=== PATIENT | female | born 1995 | race Caucasian/White ===

== ENCOUNTER 2021-02-22 14:09 | Outpatient (REF) | payer OTHER, SELFPAY ==
[2021-02-22 18:23] LABS: HCT 43.3 % (36.0-46.0); HGB 13.8 g/dL (11.2-15.7); Iron 76 ug/dL (50-170); MCH 29.6 pg (27.0-33.0); MCHC 31.9 % (32.0-36.0); MCV 92.9 fL (80-95); MPV 10.3 fL (8.0-11.0); Platelet Count 272 10^3/uL (130-400); RBC 4.66 10^6/uL (3.93-5.22); RDW-SD 44.1 fL; Total Iron Binding Capacity 302 ug/dL (250-450); Transferrin Sat 25 % (15-50); WBC 10.36 10^3/uL (4.4-10.8)
[2021-02-22 18:37] LABS: Ferritin 80 ng/mL (8-252)
[2021-02-24 10:23] LABS: HIV-1/2 Ag & Ab Screen Negative (Negative)
== END 2021-02-22 14:10 | disposition home or self-care (01) ==
LOC: LBN 14:09
PROVIDERS: Visit Provider Nurse Practitioner Family
DX: D50.9 Iron deficiency anemia, unspecified (principal); B37.0 Candidal stomatitis
CPT/HCPCS: 85027; 87389; 82728; 83540; 83550

== ENCOUNTER 2021-07-16 18:26 | Outpatient (REF) | payer OTHER, SELFPAY | END 2021-07-16 18:27 | disposition home or self-care (01) | LOC: NCHCN 18:26 | PROVIDERS: Visit Provider Physician Assistant | DX: N76.0 Acute vaginitis (principal) | CPT/HCPCS: 87480; 87510; 87660 ==

== ENCOUNTER 2022-02-09 16:19 | Outpatient (REF) | payer BC, OTHER, SELFPAY ==
--- NOTE | 2022-02-09 10:45 | PAPFT_PTH ---
PATIENT: Deepthi Jackson [facility] U#:[id number] AGE/SX: 26/F ROOM: RE02/09/[address]: DENISE HERNANDEZ NP : 1995 BED: DIS: 02/09/2022 SPEC #: [id number] RECD: 02/09/22 16:25 STATUS: CYNTHIA RERita #: [id number] MARYELLEN: 02/09/22 10:[address]: DENISE HERNANDEZ DEPT: [facility] Cytology RECD BY: Laura Jeffers Tissues: 1 - CX/ENDOCX FOR PAP SMEARS Procedures: PAP THIN PREP/UVM Screening Comments: [id number] (CHLAMYDIA/GC)
[2022-02-10 17:11] LABS: Chlamydia Result Negative (Negative); GC Result Negative (Negative)
== END 2022-02-09 16:20 | disposition home or self-care (01) ==
LOC: NCHCN 16:19
PROVIDERS: Visit Provider Nurse Practitioner Family
DX: Z11.3 Encounter for screening for infections with a predominantly sexual mode of transmission (principal); Z12.4 Encounter for screening for malignant neoplasm of cervix
CPT/HCPCS: 87491; 87591; 88142

== ENCOUNTER 2022-10-01 14:24 | Outpatient (REF) | payer BC, SELFPAY | END 2022-10-01 14:25 | disposition home or self-care (01) | LOC: NCHCN 14:24 | PROVIDERS: Visit Provider Physician Assistant Medical | DX: J02.9 Acute pharyngitis, unspecified (principal) | CPT/HCPCS: 87070 ==

== ENCOUNTER 2023-01-21 19:20 | Emergency (ER) | payer BC, SELFPAY ==
[2023-01-21 19:23] VITALS: BP 114/43; PULSE 117; RESP 18; TEMP 35.5; O2SAT 98
--- NOTE | 2023-01-21 19:45 | DI.CT_ITS ---
Exam(s) CT ABDOMEN PELVIS W EXAM: CT ABDOMEN PELVIS W CLINICAL HISTORY: RLQ abd pain, Diarrhea TECHNIQUE: Imaging Protocol: Axial computed tomography images with coronal and sagittal reformatted images were created and reviewed CONTRAST MATERIAL: Intravenous: Omnipaque 350 Contrast volume:100 mL Oral: No COMPARISON: US ABDOMEN ULTRASOUND (P) from 05/20/2016 FINDINGS: ABDOMEN: Lung Bases: Normal where visualized. Liver: Normal density. No measurable mass. Portal, Superior Mesenteric, and Splenic Veins: Unremarkable. Gallbladder and Biliary Tract: Status post cholecystectomy. No significant biliary ductal dilatation . Pancreas: Normal density, no abnormal calcifications or inflammatory process. Spleen: Normal. Adrenals: No masses seen. Kidneys: Normal size, contour and axis. No radiodense stones or obstructive uropathy. No masses seen. Abdominal Aorta: Abdominal portion non-dilated. Bowel: There is no evidence of bowel obstruction. There are fluid-filled loops of small and large elías wel suggesting a diarrheal illness. There is mild bowel wall thickening seen in the proximal small b owel. No evidence of appendicitis. Peritoneal Cavity: No ascites, collection or mesenteric inflammatory response. No free air. Lymph Nodes: Within normal limits. Bones: Within normal limits for the patient's age. Soft Tissues: Unremarkable. PELVIS: Bladder: Symmetric distention, no gross wall thickening. Reproductive Organs: Unremarkable as visualized. Lymph Nodes: Within normal limits. Bones: Within normal limits for the patient's age. IMPRESSION: Fluid-filled loops of small and large bowel which may represent an enterocolitis. RADIATION DOSE DELIVERED: 1,211.22mGy.cm Total DLP DATA REPOSITORY: All CT scans at this facility are submitted to the National Radiology Data Registry (NRDR) Dose Index Registry (DIR) with the [employer] (A[employer]). RADIATION OPTIMIZATION: All CT scans at this facility use at least one of these dose optimization te chniques: automated exposure control; mA and/or kV adjustment per patient size (includes targeted exa ms where dose is matched to clinical indication); or iterative reconstruction.
[2023-01-21] MEDS: Normal Saline 1,000 ML 1000 ML IV (19:53)
[2023-01-21] MEDS: Ondansetron 4 MG/2 ML VIAL IVP (19:54)
[2023-01-21 19:55] LABS: Abs Immature Grans 0.04 10^3/uL (0.0-0.06); Absolute Basophil Count 0.03 10^3/uL (0.0-0.2); Absolute Lymphocyte Count 1.34 10^3/uL (1.2-3.4); Absolute Monocyte Count 0.49 10^3/uL (0.1-0.8); Absolute Neutrophil Count 4.43 10^3/uL (1.2-6.7); Basophils % 0.5; Bilirubin Small (Negative); Blood Negative (Negative); Clarity Clear (Clear); Glucose Negative (Negative); HCT 50.5 % (36.0-46.0); Immature Grans % 0.6; Ketones Trace mg/dL (Negative); Leukocyte Esterase Negative (Negative); Lymphocytes % 21.2; MCHC 33.7 % (32.0-36.0); MCV 89 fL (80-95); MPV 9.6 fL (8.0-11.0); Monocytes % 7.7; Nitrite Negative (Negative); Platelet Count 225 10^3/uL (130-400); RBC 5.67 10^6/uL (3.93-5.22); RDW 13.4 % (11.7-14.6); RDW-SD 44.1 fL; Specific Gravity >= 1.030 (1.005-1.025); WBC 6.33 10^3/uL (4.4-10.8)
[2023-01-21 19:59] LABS: Bacteria Rare HPF (Negative); C & S Indicated? No; Casts Negative LPF (Negative); Crystals Negative HPF (Negative); Epithelial Cells Rare HPF (Negative); Mucus Trace (Negative); RBC 0-2 HPF (0-2); WBC Negative HPF (0-5)
--- NOTE | 2023-01-21 20:01 | W.ED.GENAD ---
Discharge Plan Disposition Patient Disposition: Home Discharge Details Clinical Impression: Enterocolitis Primary Care Provider: DENISE HERNANDEZ ED Provider: Netite Hayden Home Meds and New Rx's Prescriptions: No Action acetaminophen 325 mg capsule 325 mg PO ONCE PRN famotidine 20 mg tablet 20 mg PO BID citalopram [Celexa] 10 mg tablet 10 mg PO DAILY Nexplanon 68 MG implant 68 mg SQ q3yr Qty: 1 0RF Discharge Instructions Instructions: Gastroenteritis (ED) Additional Instructions: [place] diet for the next 2 to 3 days. Advance as tolerated. Stay away from anything fried spicy fatty or dairy. Follow up with primary care provider in 3-5 days. Return to ED sooner if any worsening or concerns. Increase oral fluids. CT shows some very dilated loops of bowel without any obstruction or blockage in your intestine. Please take Ibuprofen with food every 4-6 hours as needed for pain and swelling. You may take [id number] anti-gas medications or Pepto-Bismol or similar if needed. Your liver enzymes are slightly elevated. Please stay away from Tylenol and or alcohol and discuss this with your PCP. Referrals: DENISE HERNANDEZ, DATA ENTRY SUPERVISOR [Primary Care Provider] - 5 days Discharge Data Discharge Date/Time-TO BE ENTERED AT DEPARTURE: 01/22/23 02:21 Medical Decision Making 27-year-old female presents to the ER with CC of diarrhea since Wednesday pm, RLQ abd pain and bloating. Nausea, no vomiting. PShx cholecystectomy. Seen at urgent care today and instructed to try [place] diet, Tylenol at [address] [employer]. Workup ordered including CBC, CMP, Lipase, UA, CT abd pelvis with IV contrast. 2300: Patient reevaluation, patient reports she feels much better she has passed some gas. I did discuss her CT results with her she verbalizes understanding. I did offer some antiemetics which she declined at this time. CBC shows no leukocytosis hemoglobin 17 hematocrit 50, liver enzymes are slightly elevated AST 67 ALT 71 alk phos 136. Protein 8.3 urinalysis shows proteinuria trace ketones small bilirubin 1.[address] shows moderate dilated loops of bowel consistent with enterocolitis without obstruction. See result below. On patient reevaluation she reports feeling much better she was able to pass some gas. I did discuss CT results. Discussed strict return instructions, follow-up care and return if any worsening. Verbalized understanding. This text was generated using Solafeetation system, please disregard any oddities of phrase or misspellings. Imaging Data Radiologic Study: Imaging: CT Scan Radiologist's impression: Contrast material: [id number]; Contrast volume: 100 ml; Contrast route: INTRAVENOUS (IV); COMPARISON: US ABDOMEN ULTRASOUND (P) 05/20/2016 10:34 FINDINGS: Liver: No hepatic masses. Gallbladder and bile ducts: Cholecystectomy. No significant biliary dilation or radiopaque stones in the biliary tree. Pancreas: No ductal dilation. No masses. Spleen: No splenomegaly or focal lesions. Adrenal glands: No mass. Kidneys and ureters: No hydronephrosis. No renal masses. Stomach and bowel: Air-fluid levels in right, transverse and descending colon without definite wall thickening. Mildly distended fluid-filled distal small bowel without a focal transition point or significant wall thickening. Appendix: No evidence of appendicitis. Intraperitoneal space: No free air. No significant fluid collection. Vasculature: No abdominal aortic aneurysm. Lymph nodes: No significantly enlarged lymph nodes. Urinary bladder: Unremarkable as visualized. Reproductive: Unremarkable as visualized. Bones/joints: No acute fracture or subluxation. Soft tissues: No suspicious lesions. IMPRESSION: Likely a mild entero colitis without obstruction. Thank you for allowing us to participate in the care of your patient. Dictated and Authenticated by: Cinthya Harris MD 01/21/2023 10:22 PM Eastern Time ([place] & [place]) Lab Data Lab results reviewed: Yes I reviewed the patient's lab results. Labs: Laboratory Tests Range/Units 01/21/23 01/21/23 01/21/23 19:45 19:45 19:45 WBC (4.4-10.8) 10^3/uL 6.33 RBC (3.93-5.22) 10^6/uL 5.67 H Hgb (11.2-15.7) g/dL 17.0 H Hct (36.0-46.0) % 50.5 H MCV (80-95) fL 89 MCH (27.0-33.0) pg 30.0 MCHC (32.0-36.0) % 33.7 RDW (11.7-14.6) % 13.4 Plt Count (130-400) 10^3/uL 225 MPV (8.0-11.0) fL 9.6 Immature Gran % 0.6 Neutrophils % 70.0 Lymphocytes % 21.2 Monocytes % 7.7 Eosinophils % 0.0 Basophils % 0.5 Nucleated RBC % (0.0-0.3) % 0.0 Absolute Neutrophils (1.2-6.7) 10^3/uL 4.43 Absolute Lymphocytes (1.2-3.4) 10^3/uL 1.34 Absolute Monocytes (0.1-0.8) 10^3/uL 0.49 Absolute Eosinophils (0.0-0.7) 10^3/uL 0.00 Absolute Basophils (0.0-0.2) 10^3/uL 0.03 Sodium (136-145) mmol/L 138 Potassium (3.5-5.1) mmol/L 3.8 Chloride (98-107) mmol/L 105 Carbon Dioxide (21.0-32.0) mmol/L 22.1 Anion Gap (3-11) mmol/L 10.9 BUN (7-18) mg/dL 8 Creatinine (0.55-1.02) mg/dL 0.9 Est GFR (CKD-EPI 2020) (mL/min/1.73m2) 89.86 Glucose (74-106) mg/dL 97 Calcium (8.5-10.1) mg/dL 9.2 Magnesium (1.8-2.4) mg/dL 1.9 Total Bilirubin (0.2-1.0) mg/dL 0.3 AST (15-37) U/L 67 H ALT (14-59) U/L 71 H Alkaline Phosphatase (46-116) U/L 136 H Total Protein (6.4-8.2) g/dL 8.3 H Albumin (3.4-5.0) g/dL 3.9 Lipase (16-77) U/L 38 Urine Color (Yellow) Yellow Urine Clarity (Clear) Clear Urine pH (5-8) 6.0 Ur Specific [place] (1.005-1.025) >= 1.030 H Urine Protein (Negative) mg/dL 100 H Urine Ketones (Negative) mg/dL Trace H Urine Blood (Negative) Negative Urine Nitrite (Negative) Negative Urine Bilirubin (Negative) Small H Urine Urobilinogen (Up to 0.2) mg/dL 1.0 H Ur Leukocyte Esterase (Negative) Negative Urine RBC (0-2) HPF 0-2 Urine WBC (0-5) HPF Negative Ur Epithelial Cells (Negative) HPF Rare Urine Crystals (Negative) HPF Negative Urine Bacteria (Negative) HPF Rare Urine Casts (Negative) LPF Negative Urine Mucus (Negative) Trace Ur Culture Indicated? No Urine Glucose (Negative) mg/dL Negative HPI General Mode of arrival: ambulatory. Date/Time Provider Initiated Documentation: 01/21/23 19:37. Limitations to Documentation: no limitations. Information obtained by: patient, RN notes reviewed and old records reviewed. HPI Narrative: 27-year-old female presents to the ER with CC of diarrhea since Wednesday pm, RLQ abd pain and bloating. Nausea, no vomiting. PShx cholecystectomy. Seen at urgent care today and instructed to try [place] diet, Tylenol at [address] [employer]. Related Data Home Medications Medication Instructions Recorded Confirmed etonogestrel 68 mg subdermal 68 mg SQ q3yr #1 implant 04/30/17 01/21/23 implant (Nexplanon) acetaminophen 325 mg capsule 325 mg PO ONCE PRN 07/16/21 01/21/23 citalopram 10 mg tablet (Celexa) 10 mg PO DAILY 06/02/22 01/21/23 famotidine 20 mg tablet 20 mg PO BID 01/21/23 01/21/23 Previous Rx's Medication Instructions Recorded etonogestrel 68 mg subdermal 68 mg SQ q3yr #1 implant 04/30/17 implant (Nexplanon) Allergies Allergy/AdvReac Type Severity Reaction Status Date / Time Penicillins Allergy Severe HIVES Unverified 01/21/23 19:28 General Stated Complaint: Abd Prob MICHELL: 3 Review of Systems All systems reviewed & are unremarkable except as noted in HPI and below Gastrointestinal Gastrointestinal: Reports as per HPI, Reports abdominal pain, Reports diarrhea, Reports nausea and Denies vomiting PFSH All Active Problems (Updated 01/21/23 @ 23:00 by Nettie Hayden NP) Enterocolitis (Acute) Medical History Acne facial Contraception OCPS. manages acne also. Low grade squamous intraepithelial lesion (LGSIL) at risk for high grade squamous intraepithelial lesion (HGSIL) on cytologic smear of cervix Surgical History Cholecystectomy (01/28/16) MOUTH SURGERY (~1997) Family History Mother No problems noted. Father No problems noted. Grandfather Hypertensive disorder, systemic arterial Hyperlipidemia Grandfather No problems noted. Grandmother No problems noted. Grandmother No problems noted. Social History Smoking/Tobacco Use Status: Never Smoking risk assessment performed?: Yes Drug use: Never Substance use type: does not use Do you feel safe at home: Yes Do you feel safe in your relationship?: Yes Exam Narrative Exam Narrative: Constitutional: Alert and oriented x3. Appears stated age. Normal body habitus. Head: Normocephalic, no trauma. Eyes: Pupils PERRL, Red reflex noted, EOM's intact. Eyelids symmetrical without lesions, discharge, or swelling. . Chest: RRR, Normal S1, S2, distal pulses intact. Resp: Lungs clear to auscultation bilaterally, no wheezes, rales, or rhonchi. Abdomen: Soft, non-distended, hyper active bowel sounds all 4 quads. Tender to palpation all 4 quadrants. Worse right lower quadrant Musculoskeletal: Normal gait, 5/5 strength to all four extremities. Skin: No suspicious rashes or lesions. Capillary refill less than 2 sec. Neurologic: Cranial nerves II-XII intact. Alert and oriented x 3. Motor: No deficits noted. Sensory: Intact bilaterally all 4 extremities. Hematologic/Lymphatic: No ecchymosis, no lymphadenopathy. Course Vital Signs Vital signs: Vital Signs Temperature 35.5 C L 01/21/23 19:23 Pulse 117 H 01/21/23 19:23 Respiratory Rate 18 01/21/23 19:23 Blood Pressure 114/43 L 01/21/23 19:23 Pulse Oximetry 98 01/21/23 19:23 Temperature 35.5 C L 01/21/23 19:23 Temperature Source Skin 01/21/23 19:23 Pulse 117 H 01/21/23 19:23 Respiratory Rate 18 01/21/23 19:23 Respiratory Effort Normal 01/21/23 19:26 Blood Pressure 114/43 L 01/21/23 19:23 Blood Pressure Position Sitting 01/21/23 19:23 Pulse Oximetry 98 01/21/23 19:23 Oxygen Delivery Method Room Air 01/21/23 19:23 Oxygen Flow Rate 0 01/21/23 19:23 Lab/Test Results Lab/Test Results: Laboratory Tests Range/Units 01/21/23 01/21/23 19:45 19:45 WBC (4.4-10.8) 10^3/uL 6.33 RBC (3.93-5.22) 10^6/uL 5.67 H Hgb (11.2-15.7) g/dL 17.0 H Hct (36.0-46.0) % 50.5 H MCV (80-95) fL 89 MCH (27.0-33.0) pg 30.0 MCHC (32.0-36.0) % 33.7 RDW (11.7-14.6) % 13.4 Plt Count (130-400) 10^3/uL 225 MPV (8.0-11.0) fL 9.6 Immature Gran % 0.6 Neutrophils % 70.0 Lymphocytes % 21.2 Monocytes % 7.7 Eosinophils % 0.0 Basophils % 0.5 Nucleated RBC % (0.0-0.3) % 0.0 Absolute Neutrophils (1.2-6.7) 10^3/uL 4.43 Absolute Lymphocytes (1.2-3.4) 10^3/uL 1.34 Absolute Monocytes (0.1-0.8) 10^3/uL 0.49 Absolute Eosinophils (0.0-0.7) 10^3/uL 0.00 Absolute Basophils (0.0-0.2) 10^3/uL 0.03 Urine Color (Yellow) Yellow Urine Clarity (Clear) Clear Urine pH (5-8) 6.0 Ur Specific [place] (1.005-1.025) >= 1.030 H Urine Protein (Negative) mg/dL 100 H Urine Ketones (Negative) mg/dL Trace H Urine Blood (Negative) Negative Urine Nitrite (Negative) Negative Urine Bilirubin (Negative) Small H Urine Urobilinogen (Up to 0.2) mg/dL 1.0 H Ur Leukocyte Esterase (Negative) Negative Urine RBC (0-2) HPF 0-2 Urine WBC (0-5) HPF Negative Ur Epithelial Cells (Negative) HPF Rare Urine Crystals (Negative) HPF Negative Urine Bacteria (Negative) HPF Rare Urine Casts (Negative) LPF Negative Urine Mucus (Negative) Trace Ur Culture Indicated? No Urine Glucose (Negative) mg/dL Negative POC- Test(urine) Negative
[2023-01-21 20:07] LABS: ALT 71 U/L (14-59); AST 67 U/L (15-37); Albumin 3.9 g/dL (3.4-5.0); Alkaline Phosphatase 136 U/L (46-116); Anion Gap 10.9 mmol/L (3-11); BUN 8 mg/dL (7-18); Bilirubin, Total 0.3 mg/dL (0.2-1.0); CO2 22.1 mmol/L (21.0-32.0); CREATININE 0.9 mg/dL (0.55-1.02); Calcium 9.2 mg/dL (8.5-10.1); Chloride 105 mmol/L (98-107); Estimated GFR 89.86 (mL/min/1.73m2); Glucose 97 mg/dL (74-106); Lipase 38 U/L (16-77); Magnesium 1.9 mg/dL (1.8-2.4); Potassium 3.8 mmol/L (3.5-5.1); Sodium 138 mmol/L (136-145); Total Protein 8.3 g/dL (6.4-8.2)
[2023-01-21] MEDS: Omnipaque 350 MG/ML 100 ML BTL IJ (20:52)
[2023-01-21] MEDS: Normal Saline - Diluent 50 ML VIAL IJ (20:53)
--- NOTE | 2023-01-21 22:23 | DI.VRAD_ITS ---
PROCEDURE INFORMATION: Exam: CT Abdomen And Pelvis With Contrast Exam date and time: 01/21/2023 20:39 Age: 27 years old Clinical indication: Abdominal pain; Acute; Additional info: Rlq pain, diarrhea TECHNIQUE: Imaging protocol: Computed tomography of the abdomen and pelvis with contrast. Contrast material: [id number]; Contrast volume: 100 ml; Contrast route: INTRAVENOUS (IV); COMPARISON: US ABDOMEN ULTRASOUND (P) 05/20/2016 10:34 FINDINGS: Liver: No hepatic masses. Gallbladder and bile ducts: Cholecystectomy. No significant biliary dilation or radiopaque stones in the biliary tree. Pancreas: No ductal dilation. No masses. Spleen: No splenomegaly or focal lesions. Adrenal glands: No mass. Kidneys and ureters: No hydronephrosis. No renal masses. Stomach and bowel: Air-fluid levels in right, transverse and descending colon without definite wall thickening. Mildly distended fluid-filled distal small bowel without a focal transition point or significant wall thickening. Appendix: No evidence of appendicitis. Intraperitoneal space: No free air. No significant fluid collection. Vasculature: No abdominal aortic aneurysm. Lymph nodes: No significantly enlarged lymph nodes. Urinary bladder: Unremarkable as visualized. Reproductive: Unremarkable as visualized. Bones/joints: No acute fracture or subluxation. Soft tissues: No suspicious lesions. IMPRESSION: Likely a mild entero colitis without obstruction. Dictated and Authenticated by: Cinthya Harris MD. Ordering:SULMA Sheffield MD
[2023-01-21 23:00] VITALS: BP 113/75; PULSE 95; RESP 16; TEMP 35.5; O2SAT 97
== END 2023-01-22 02:21 | disposition home or self-care (01) ==
PROVIDERS: Emergency Provider Registered Nurse Emergency; PCP Nurse Practitioner Family
DX: K52.9 Noninfective gastroenteritis and colitis, unspecified (principal)
CPT/HCPCS: 36415; 80053; 81025; 83690; 96361; 96374; 99285; 74177; 81003; 81015; 83735; 85025; 99284; J2405; J3490

== ENCOUNTER 2023-04-27 17:46 | Outpatient (REF) | payer BC, SELFPAY | END 2023-04-27 17:47 | disposition home or self-care (01) | LOC: LBN 17:46 | PROVIDERS: PCP Nurse Practitioner Family; Visit Provider Physician Assistant | DX: R30.0 Dysuria (principal); B37.31 Acute candidiasis of vulva and vagina | CPT/HCPCS: 87480; 87510; 87660 ==

== ENCOUNTER 2023-09-10 20:39 | Emergency (ER) | payer BC, SELFPAY ==
[2023-09-10 20:43] VITALS: BP 128/85; PULSE 115; RESP 16; TEMP 36.6; O2SAT 97
--- NOTE | 2023-09-10 20:49 | ED.GENADUL_ITS ---
Discharge Plan Disposition Patient Disposition: Home Condition: Stable Discharge Details Clinical Impression: Acute sinusitis Primary Care Provider: DENISE HERNANDEZ ED Provider: Barrett Amador Home Meds and New Rx's Prescriptions: New prednisone 20 mg tablet 40 mg PO DAILY 5 Days Qty: 10 0RF No Action acetaminophen 325 mg capsule 325 mg PO ONCE PRN famotidine 20 mg tablet 20 mg PO BID citalopram [Celexa] 10 mg tablet 10 mg PO DAILY Nexplanon 68 MG implant 68 mg SQ q3yr Qty: 1 0RF Discharge Instructions Instructions: Sinusitis (ED) Additional Instructions: You were seen in the emergency department for your sinusitis. We ruled out retropharyngeal abscess, peritonsillar abscess and epiglottitis at tonight's visit which were all emergent ear nose and throat problems. Please continue y our doxycycline, I did send a prescription for prednisone for the next 5 days to [facility] in [place], you can wait and defer taking this if you want to see if your antibiotics become more effective by day 3 of treatment. Please use therapeutic dosing of Tylenol (acetamenophen) & Advil (ibuprofen) in an alternating fashion as follows: Take 1000mg of Tylenol every 6 hours without missing doses- that is 4 times per day. [place] in between the Tylenol dosings, take 400-600mg of Advil also on a 6 hour schedule, that is also 4 times per day. The daily maximum dosing of Tylenol is 4000mg, and the daily maximum dosing of Advil is 2400mg. This is safe to do for weeks. Please note that some common cold medications & prescription pain medications may contain acetamenophen and you need to read OTC drug labels and factor that in to maximum daily dosings. Obtain the [id number]-hqlwumt Flonase, return for any worsening despite treatment, any shortness of breath, difficulty swallowing, inability to range your jaw, excessive vocal changes, excessive drooling and inability to manage her secretions Referrals: DENISE HERNANDEZ, JUDICIAL ASSISTANT [Primary Care Provider] - HPI General Date/Time Provider Initiated Documentation: 09/10/23 20:49 . HPI Narrative: 28 year-old female presents to ED today by POV/ambulating with a chief complaint of sore throat, severe sinus congestion, cough, sore throat, inability to swallow significant solids, vocal changes, excessive drooling with onset noted for the past couple weeks- seen at [facility] yesterday, flu/covid/strep negative, diagnosed with sinusitis and started on doxycycline due to PCN allergy- states much worse today. Quality described as severe vocal changes, feels like she cannot swallow, and feels like she's started to have trouble with her own secretions, no radiation to overt fever, shortness of breath, severe headache, visual changes, syncope, chest pain - does endorse feeling so congested in her sinus' she is starting to have eye discharge. Severity is described as 10. Palliating factors include has had 1 dose doxycyline, using OTC analgesics. Provoking factors include nothing specific. Patient not anticoagulated. Related Data Home Medications Medication Instructions Recorded Confirmed etonogestrel 68 mg subdermal 68 mg SQ q3yr #1 implant 04/30/17 09/10/23 implant (Nexplanon) acetaminophen 325 mg capsule 325 mg PO ONCE PRN 07/16/21 09/10/23 citalopram 10 mg tablet (Celexa) 10 mg PO DAILY 06/02/22 09/10/23 famotidine 20 mg tablet 20 mg PO BID 01/21/23 09/10/23 prednisone 20 mg tablet 40 mg (2 x 20 mg) PO DAILY 5 days 09/10/23 #10 tabs Previous Rx's Medication Instructions Recorded etonogestrel 68 mg subdermal 68 mg SQ q3yr #1 implant 04/30/17 implant (Nexplanon) prednisone 20 mg tablet 40 mg (2 x 20 mg) PO DAILY 5 days 09/10/23 #10 tabs Allergies Allergy/AdvReac Type Severity Reaction Status Date / Time Penicillins Allergy Severe HIVES Unverified 09/09/23 17:04 General Stated Complaint: GenMedical MICHELL: 3 Review of Systems All systems reviewed & are unremarkable except as noted in HPI and below Exam Narrative Exam Narrative: GENERAL APPEARANCE: Well-nourished, non-toxic, awake and alert, atraumatic, no acute distress. SKIN: Warm, pink, dry, intact, without rashes/lesions/ulcerations. HEAD: Normocephalic, atraumatic, normal hair distribution for gender/age. EYES: Pupils PERRLA, EOMs intact without nystagmus, normal conjunctiva, no exudates on lids/lashes. ENT: Nares patent, no circumoral cyanosis, no facial swelling, no mastoid tenderness, TMs clear bilat., uvula midline, bilateral tonsillar swelling, no tongue deviation, + vocal changes/hoarseness, managing secretions currently. NECK: Supple, trachea midline, painless cervical ROM, R>L but bilateral cervical lymphadenopathy at tonsillar glands. LUNGS/CHEST: Lungs CTA bilaterally- no rhonchi/rales/wheezes diffusely, non- labored respirations, normal A/P diameter, symmetrical expansion, no chest wall deformity HEART (CV/PV): Regular rate and rhythm without murmur, no peripheral edema, no JVD. ABDOMEN: Soft, non-distended, no guarding, no tenderness. MSK: Normal ROM, no swelling/deformity to bilateral UEs or LEs, moving all extremities without weakness, no cyanosis, spine midline without tenderness, normal curvature. NEURO: Mental Status AAOx4 - alert to person, place, time, events No facial droop, no forehead involvement. Motor: No focal weakness - strength 5/5 in bilateral UEs and LEs, proximal and distal, symmetric. Sensory: sensation intact to light touch globally. Gait normal: patient ambulated without ataxia into ED room. PSYCH: euthymic, cooperative, pleasant, appropriate speech Course Vital Signs Vital signs: Vital Signs Temperature 36.6 C 09/10/23 20:43 Pulse 115 H 09/10/23 20:43 Respiratory Rate 16 09/10/23 20:43 Blood Pressure 128/85 09/10/23 20:43 Pulse Oximetry 97 09/10/23 20:43 Temperature 36.6 C 09/10/23 20:43 Temperature Source Oral 09/10/23 20:43 Pulse 115 H 09/10/23 20:43 Respiratory Rate 16 09/10/23 20:43 Respiratory Effort Normal 09/10/23 20:48 Blood Pressure 128/85 09/10/23 20:43 Blood Pressure Position Sitting 09/10/23 20:43 Pulse Oximetry 97 09/10/23 20:43 Oxygen Delivery Method Room Air 09/10/23 20:43 Oxygen Flow Rate 0 09/10/23 20:43 Pain Level 0 09/10/23 20:43 Medical Decision Making This dictation utilizes [id number] dictation software and may contain unedited grammatical errors. 28 y/o F presents to ED today with a chief complaint of two weeks onset of worsening sinus congestion, sore throat, seen at [facility] yesterday started on doxycycline- now having worsening congestion, vocal changes, dysphagia, drooling subjectively today- denies fever, denies nausea/vomiting, has mild cough without shortness of breath. Patients' medical history: noncontributory. Family and social history: noncontributory. Pertinent exam findings / vital signs include mildly tachycardic, tonsillar swelling, R>L tonsillar lymphadenopathy, vocal changes, lungs CTA. Differential / pathologies of concern include Peritonsillar abscess, Retropharyngeal abscess, Epiglottitis, Pharyngitis, Sinusitis, Viral Syndrome, Sepsis. Diagnostic studies of: -CBC, CMP, lactate, CRP/ESR, procalcitonin, POC uPreg, CT neck with contrast. -CBC shows mild leukocytosis 12 -CMP benign -lactate WNL, procalcitonin negative 0.2 ~ bacterial sinusitis -CRP 5, non-specific -Upreg negative -CT neck shows sinusitis bilaterally, no epiglottitis or abscess. Interventions of: -IVF, IV Tylenol, IV ketorlac, IV solu-medrol. ED Course/Assessment/Plan: 20-year-old female was seen at [facility] yesterday for 2-week onset likely sinus infection, she does have vocal changes and reports dysphagia as well as drooling so I performed a CT neck to rule out more insidious pathology, there is no evidence of peritonsillar abscess, retropharyngeal abscess epiglottitis or other emergent pathology, the patient received IV Solu-Medrol here and I did send a outpatient prescription for her and recommend she continue doxycycline due to her penicillin allergy. Take Tylenol and ibuprofen at therapeutic levels for relief, strict return criteria for worsening despite treatment. 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 Disposition of Bilateral Sinusitis. Patient verbalized understanding of the plan and return to ED criteria and engaged in shared decision making. Medical Records Medical records reviewed: Yes I reviewed the patient's medical records. 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 Contrast material: 350; Contrast volume: 100 ml; Contrast route: INTRAVENOUS (IV); COMPARISON: No relevant prior studies available. FINDINGS: Paranasal sinuses: Bilateral maxilloethmoidal mucosal disease/opacification noted. Oropharynx/oral cavity: No significant tonsillar enlargement. No mucosal lesions are detected. Larynx: Epiglottis is sharply defined and normal in appearance. Prevertebral and retropharyngeal spaces: Unremarkable. Salivary glands: Glands are normal in size. Thyroid: Normal. No enlarged or calcified nodules. Lymph nodes: Shotty internal jugular and submandibular lymph nodes are seen bilaterally. Trachea: Visualized trachea is unremarkable. Lungs: Unremarkable as visualized. Bones/joints: Unremarkable. No acute fracture. Soft tissues: Unremarkable. No significant soft tissue swelling. IMPRESSION: 1. No evidence of tonsillitis, peritonsillar abscess or epiglottitis. 2. Shotty internal jugular and submandibular lymph nodes are seen bilaterally, nonspecific. 3. Bilateral maxilloethmoidal mucosal disease/opacification also noted as above. Dictated and Authenticated by: Greg Her MD. Ordering:LURDES Hyde MD Lab Data Lab results reviewed: Yes I reviewed the patient's lab results. Labs: Laboratory Tests Range/Units 09/10/23 21:12 WBC (4.4-10.8) 10^3/uL 12.72 H RBC (3.93-5.22) 10^6/uL 5.12 Hgb (11.2-15.7) g/dL 15.4 Hct (36.0-46.0) % 47.5 H MCV (80-95) fL 93 MCH (27.0-33.0) pg 30.1 MCHC (32.0-36.0) % 32.4 RDW (11.7-14.6) % 12.9 Plt Count (130-400) 10^3/uL 284 MPV (8.0-11.0) fL 9.5 Immature Gran % 0.5 Neutrophils % 72.5 Lymphocytes % 18.2 Monocytes % 7.8 Eosinophils % 0.4 Basophils % 0.6 Nucleated RBC % (0.0-0.3) % 0.0 Absolute Neutrophils (1.2-6.7) 10^3/uL 9.22 H Absolute Lymphocytes (1.2-3.4) 10^3/uL 2.32 Absolute Monocytes (0.1-0.8) 10^3/uL 0.99 H Absolute Eosinophils (0.0-0.7) 10^3/uL 0.05 Absolute Basophils (0.0-0.2) 10^3/uL 0.08 ESR (0-20) mm/hr 14 VBG Lactate (0.6-1.4) mmol/L 0.9 Sodium (136-145) mmol/L 141 Potassium (3.5-5.1) mmol/L 3.7 Chloride (98-107) mmol/L 104 Carbon Dioxide (21.0-32.0) mmol/L 26.8 Anion Gap (3-11) mmol/L 10.2 BUN (7-18) mg/dL 7 Creatinine (0.55-1.02) mg/dL 0.9 Est GFR (CKD-EPI 2020) (mL/min/1.73m2) 89.30 Glucose (74-106) mg/dL 101 Calcium (8.5-10.1) mg/dL 9.2 Total Bilirubin (0.2-1.0) mg/dL 0.3 AST (15-37) U/L 18 ALT (14-59) U/L 46 Alkaline Phosphatase (46-116) U/L 113 C-Reactive Protein (<or=0.5) mg/dL 5.49 H Total Protein (6.4-8.2) g/dL 8.2 Albumin (3.4-5.0) g/dL 3.5 Procalcitonin ng/mL 0.2 Quality:SDOH Health Related Social Needs: No Data to Display PFSH All Active Problems (Updated 09/10/23 @ 22:23 by JOY Florez) Acute sinusitis (Acute) Medical History 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 manages acne also. Acne facial Surgical History MOUTH SURGERY (~1997) Cholecystectomy (01/28/16) Family History Mother No problems noted. Father No problems noted. Grandfather Hypertensive disorder, systemic arterial Hyperlipidemia Grandfather No problems noted. Grandmother No problems noted. Grandmother No problems noted. Social History Smoking/Tobacco Use Status: Never Smoking risk assessment performed?: Yes Drug use: Never Substance use type: does not use Housing: house Do you feel safe at home: Yes Do you feel safe in your relationship?: Yes
--- NOTE | 2023-09-10 21:00 | DI.CT_ITS ---
Exam(s) CT NECK W EXAM: CT NECK W INDICATION: neck swelling, vocal changes, drooling. COMPARISON: No exams were available for comparison TECHNIQUE: FINDINGS: VISUALIZED PARANASAL SINUSES: There is circumferential mucosal thickening in both maxillary sinuses, not associated with acute fluid levels. There is also opacification of ethmoidal air cells bilateral ly. Right frontal sinus is clear. Left frontal sinuses not developed. Sphenoid sinuses are clear b ilaterally. Mastoid air cells clear. No mastoid effusions. NASOPHARYNX: Unremarkable ORODENTAL: Unremarkable. OROPHARYNX: Slightly prominent tonsils. Single tonsillith on the right side noted. No evidence of t onsillar abscess. Uvula is midline. HYPOPHARYNX: Unremarkable. Valleculae and epiglottis and aryepiglottic folds appear normal. VOCAL CORDS: Unremarkable. No masses evident. Subglottic airway appears unremarkable. THYROID GLAND: Unremarkable. SALIVARY GLANDS: Unremarkable. No significant findings in the parotid and submandibular glands. LYMPH NODES: There are multiple slightly prominent lymph nodes on both sides of the neck in the jugul ar chains. No prominent supraclavicular adenopathy. Slightly enlarged sub platysmal lymph nodes are also noted bilaterally. OTHER: VISUALIZED LUNG APICES: No significant findings. IMPRESSION: 1. Slightly enlarged bilateral tonsils but no evidence of tonsillar nor peritonsillar abscess. No r etropharyngeal abscess. 2. Slightly prominent shoddy internal jugular and submandibular lymph nodes are seen bilaterally. 3. There is paranasal sinus disease as described above. First read by [facility]. RADIATION DOSE DELIVERED: Total DLP DATA REPOSITORY: All CT scans at this facility are submitted to the National Radiology Data Registry (NRDR) Dose Index Registry (DIR) with the [employer] (A[employer]). RADIATION OPTIMIZATION: All CT scans at this facility use at least one of these dose optimization te chniques: automated exposure control; mA and/or kV adjustment per patient size (includes targeted exa ms where dose is matched to clinical indication); or iterative reconstruction.
[2023-09-10 21:24] LABS: Abs Immature Grans 0.06 10^3/uL (0.0-0.06); Absolute Eosinophil Count 0.05 10^3/uL (0.0-0.7); Absolute Monocyte Count 0.99 10^3/uL (0.1-0.8); Basophils % 0.6; Eosinophils % 0.4; HCT 47.5 % (36.0-46.0); HGB 15.4 g/dL (11.2-15.7); Immature Grans % 0.5; Lactate 0.9 mmol/L (0.6-1.4); Lymphocytes % 18.2; MCH 30.1 pg (27.0-33.0); MCHC 32.4 % (32.0-36.0); MCV 93 fL (80-95); MPV 9.5 fL (8.0-11.0); Monocytes % 7.8; Neutrophils % 72.5; Platelet Count 284 10^3/uL (130-400); RBC 5.12 10^6/uL (3.93-5.22); RDW 12.9 % (11.7-14.6); RDW-SD 44.5 fL; WBC 12.72 10^3/uL (4.4-10.8)
[2023-09-10 21:26] LABS: Absolute Basophil Count 0.08 10^3/uL (0.0-0.2); Absolute Lymphocyte Count 2.32 10^3/uL (1.2-3.4); Absolute Neutrophil Count 9.22 10^3/uL (1.2-6.7)
[2023-09-10 21:27] LABS: ESR 14 mm/hr (0-20)
[2023-09-10] MEDS: Normal Saline - Diluent 50 ML VIAL IJ (21:32)
[2023-09-10] MEDS: Omnipaque 350 MG/ML 100 ML BTL IJ (21:33)
[2023-09-10 21:40] VITALS: BP 106/61; PULSE 87; RESP 16; TEMP 36.6; O2SAT 99
[2023-09-10] MEDS: Normal Saline 1,000 ML 1000 ML IV (21:40)
[2023-09-10] MEDS: methylPREDNISolone SUCC 125 MG VIAL IVP (21:40)
[2023-09-10] MEDS: Ketorolac 15 MG/ML VIAL IVP (21:40)
[2023-09-10] MEDS: ACETAMINOPHEN 1,000 MG/100 ML BTL 400 MG IVPB (21:40)
[2023-09-10 21:43] LABS: ALT 46 U/L (14-59); AST 18 U/L (15-37); Albumin 3.5 g/dL (3.4-5.0); Alkaline Phosphatase 113 U/L (46-116); Anion Gap 10.2 mmol/L (3-11); BUN 7 mg/dL (7-18); Bilirubin, Total 0.3 mg/dL (0.2-1.0); C-Reactive Protein 5.49 mg/dL (<or=0.5); CO2 26.8 mmol/L (21.0-32.0); CREATININE 0.9 mg/dL (0.55-1.02); Calcium 9.2 mg/dL (8.5-10.1); Chloride 104 mmol/L (98-107); Glucose 101 mg/dL (74-106); Potassium 3.7 mmol/L (3.5-5.1); Sodium 141 mmol/L (136-145); Total Protein 8.2 g/dL (6.4-8.2)
[2023-09-10 22:02] LABS: Procalcitonin 0.2 ng/mL
--- NOTE | 2023-09-10 22:14 | DI.VRAD_ITS ---
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 Contrast material: 350; Contrast volume: 100 ml; Contrast route: INTRAVENOUS (IV); COMPARISON: No relevant prior studies available. FINDINGS: Paranasal sinuses: Bilateral maxilloethmoidal mucosal disease/opacification noted. Oropharynx/oral cavity: No significant tonsillar enlargement. No mucosal lesions are detected. Larynx: Epiglottis is sharply defined and normal in appearance. Prevertebral and retropharyngeal spaces: Unremarkable. Salivary glands: Glands are normal in size. Thyroid: Normal. No enlarged or calcified nodules. Lymph nodes: Shotty internal jugular and submandibular lymph nodes are seen bilaterally. Trachea: Visualized trachea is unremarkable. Lungs: Unremarkable as visualized. Bones/joints: Unremarkable. No acute fracture. Soft tissues: Unremarkable. No significant soft tissue swelling. IMPRESSION: 1. No evidence of tonsillitis, peritonsillar abscess or epiglottitis. 2. Shotty internal jugular and submandibular lymph nodes are seen bilaterally, nonspecific. 3. Bilateral maxilloethmoidal mucosal disease/opacification also noted as above. Dictated and Authenticated by: Greg Her MD. Ordering:LURDES Hyde MD
[2023-09-10 22:32] VITALS: BP 110/58; PULSE 94; RESP 18; TEMP 36.7; O2SAT 99
== END 2023-09-10 22:32 | disposition home or self-care (01) ==
PROVIDERS: Emergency Provider Physician Assistant; PCP Nurse Practitioner Family
DX: J01.40 Acute pansinusitis, unspecified (principal)
CPT/HCPCS: 70491; 80053; 81025; 84145; 85652; 96361; 96374; 96375; 99285; 83605; 85025; 86140; 99284; J0131; J1885; J2930; J3490

== ENCOUNTER → 2025-06-06 00:08 | Outpatient (CLI) | payer BC, SELFPAY ==
--- NOTE | 2025-06-06 10:01 | DI.MAMMO_ITS ---
Exam(s) US BREAST RT COMPLETE MG MAMMO DIAGNOSTIC BI EXAM: MG MAMMO DIAGNOSTIC BI AND COMPLETE RIGHT BREAST ULTRASOUND CLINICAL HISTORY: RT BREAST LUMP, MASS, SKIN CHANGES,N63.10. TECHNIQUE: BILATERAL CC AND MLO mammographic images were obtained with 3D tomosynthesis technique and utilizing computer aided detection (CAD). COMPLETE RIGHT BREAST ULTRASOUND was performed including all 4 quadrants as well as the right axilla. COMPARISON: None. This is baseline breast imaging on 29-year-old who was recently on a one-week course of antibiotics for probable abscess in the skin of the over the medial 4 o'clock position of the right breast. She has been off antibiotics x1 week. She claims that this has been getting somewhat better but not yet resolved. FINDINGS: DIAGNOSTIC BILATERAL MAMMOGRAM: There are no spiculated masses nor malignant-appearing microcalcification groups in either breast. Asymmetric density in the medial aspect of the right breast noted which is probably just overlapping breast tissue. There is some mild skin thickening over the inferomedial aspect of the right breast corresponding to the area of clinical concern. No distinct mass at this level in the breast and no malignant-appearing microcalcification groups. No significant architectural distortion or skin thickening-retraction. COMPLETE RIGHT BREAST ULTRASOUND: There is a solitary finding which is in the dermal layer at the 4 o'clock position, corresponding to her clinical area of concern. This finding measures 1.5 cm by 0.3 cm and does not extend deep to the dermal layer. It does not appear very hyperemic although this patient has recently finished a course of antibiotics. No other focal findings in all 4 quadrants of the breast. Scanning of the right axilla is negative for significant adenopathy. IMPRESSION: No radiographic evidence of malignancy At the 4 o'clock position there is an intradermal 15 x 3 mm findings described above. This is most probably an abscess which has undergone recent antibiotic treatment explaining wide is not very hyperemic at this time. In addition, the patient claims that it has significantly improved since she has apparently continue to improve in the week following finishing her antibiotics. Appropriate follow-up is repeat ULTRASOUND exam in 3 months, earlier if clinically indicated.. The patient was informed of the findings and follow-up recommendations by myself prior to leaving the department today. BI-RADS Category 3 - 3 month - Probably Benign Finding: Recommend follow-up RIGHT BREAST ULTRASOUND in 3 months Breast Density - Category B - There are scattered areas of fibroglandular density. Breast density Category C or D implies that the patient has dense breast tissue. Dense breast tissue can make it harder to find cancer on a mammogram. Dense breast tissue is also associated with an increased risk of breast cancer. This information about the result of the mammogram report was provided to the patient to raise their awareness. Use this report when you speak with the patient about their risks for breast cancer, which includes their family history. At that time, you may recommend additional screening tests (Ultrasound or MRI) as these tests may add significant information. A negative radiographic report should not delay biopsy if a dominant or clinically suspicious mass is present. Up to ten percent of cancers are not identified on mammography. A negative report may reinforce clinical impression. Adenosis and dense breasts may obscure an underlying neoplasm. False positive reports average 6 to 10%. Patient will receive a letter notifying them of these results.
== END ==
LOC: DI 00:09
PROVIDERS: PCP Nurse Practitioner Family; Visit Provider Nurse Practitioner Family
DX: N63.14 Unspecified lump in the right breast, lower inner quadrant (principal); R23.8 Other skin changes
CPT/HCPCS: 76642; 77062; 77066; G0279